=== PATIENT | female | born 1985 | race Hispanic/Latino ===

== ENCOUNTER 2019-02-24 06:37 | Emergency (ER) | payer SELFPAY ==
[2019-02-24] MEDS ORDERED: ASPIRIN PO ONE (07:17)
== END 2019-02-24 08:32 | disposition left against medical advice (07) ==
LOC: ED 06:37
DX: R51 Headache (principal); R07.89 Other chest pain; Z53.21 Procedure and treatment not carried out due to patient leaving prior to being seen by health care provider
CPT/HCPCS: 93005; 93010